=== PATIENT | female | born 1995 | race American Indian/Alaskan Native ===

== ENCOUNTER 2018-08-13 14:34 | Emergency (ER) | payer OTHER ==
[2018-08-13 15:24] VITALS: BP 118/67
--- NOTE | 2018-08-13 15:25 | Event Note ---
ED Screening Note Date of service: 08/13/18 Time: 15:20 ED Screening Note: 23 y/o female comes in for right 3rd digit pain and trauma. This happen a work last night now has swelling and pain. This initial assessment/diagnostic orders/clinical plan/treatment(s) is/are subject to change based on patients health status, clinical progression and re- assessment by fellow clinical providers in the ED. Further treatment and workup at subsequent clinical providers discretion. Patient/guardian urged not to elope from the ED as their condition may be serious if not clinically assessed and managed. Initial orders include:
--- NOTE | 2018-08-13 16:34 | XRay Report ---
PROCEDURE: RIGHT HAND, 2 VIEWS TECHNIQUE: RIGHT hand radiographs, AP and lateral views. CPT 78044-AV HISTORY: Trauma to the fourth digit. COMPARISONS: None . FINDINGS: Fracture (s) and/or Dislocation(s): There is an acute, oblique fracture through the tuft of the righ t fourth finger. . Alignment: Normal . Joint space(s): Normal . Soft tissues: There is soft tissue swelling of the left fourth finger . Bone mineralization: Normal . Foreign bodies: None . IMPRESSION: Acute right fourth finger tuft fracture . This document is electronically signed by Mable Ferguson., August 13 2018 04:31:42 PM ET
--- NOTE | 2018-08-13 16:35 | XRay Report ---
PROCEDURE: XR FINGER(S) 2+V RT TECHNIQUE: 3 views of the right fourth finger. HISTORY: trauma to right 4th digit COMPARISONS: None. FINDINGS: There is an acute, oblique fracture through the tuft of the right fourth finger. No dislocation. Normal mineralization. There is soft tissue swelling surrounding the right fourth finger. IMPRESSION: Acute right fourth finger tuft fracture. This document is electronically signed by Mable Ferguson., August 13 2018 04:33:41 PM ET
[2018-08-13] MEDS ORDERED: IBUPROFEN PO ONE (17:42)
--- NOTE | 2018-08-13 17:45 | Emergency Department Report ---
Upper Extremity - HPI Chief Complaint: Extremity Injury, Upper Stated Complaint: FINGER INJURY Time Seen by Provider: 08/13/18 15:20 Upper Extremity: Right Ring Finger Occurred When: Today Mechanism: Hit with Object Severity: moderate Symptoms: Yes Pain with Movement, Yes Limited Range of Movement, Yes Swelling, Yes Bruising/Ecchymosis, No Deformity, No Numbness, No Weakness, No Laceration or Abrasion Other History: grill fell on 4th fingertip ED Review of Systems ROS: Stated complaint: FINGER INJURY Other details as noted in HPI Comment: All other systems reviewed and negative ED Past Medical Hx - Past Medical History Previous Medical History?: No - Surgical History Past Surgical History?: No - Social History Smoking Status: Never Smoker Substance Use Type: Alcohol - Medications Home Medications: Home Medications Medication Instructions Recorded Confirmed Last Taken Type Ibuprofen [Motrin 600 MG tab] 600 mg PO Q6H #20 tablet 08/13/18 Unknown Rx Upper Extremity Exam - Exam General: Vital signs noted. No distress. Alert and acting appropriately. Wrist: Yes Normal ROM in Wrist, No Wrist Tenderness, No Wrist Deformity, No S nuffbox Tenderness, No Pain with Axial Thumb Compression Hand: Yes Digit Tenderness (4th R tip, bruising/swelling), No Hand Tenderness, No Hand Deformity, No Digit(s) Deformity, No Tendon Dysfunction CMS Exam: Yes Normal Distal Pulses, Yes Normal Capillary Refill, Yes Normal Distal Sensation, No Broken Skin ED Course Vital Signs 08/13/18 15:20 Temperature 97.9 F Pulse Rate 71 Respiratory 16 Rate Blood Pressure 118/67 O2 Sat by Pulse 98 Oximetry ED Medical Decision Making - Medical Decision Making tuft fx, splint placed given motrin, fu pcp - Differential Diagnosis fx, contusion Critical care attestation.: If time is entered above; I have spent that time in minutes in the direct care of this critically ill patient, excluding procedure time. ED Disposition Clinical Impression: Closed fracture of tuft of distal phalanx of finger Disposition: DC-01 TO HOME OR SELFCARE Is pt being admited?: No Condition: Good Instructions: Finger Fracture (ED) Prescriptions: Ibuprofen [Motrin 600 MG tab] 600 mg PO Q6H #20 tablet Referrals: IVY KEITH MD [Primary Care Provider] - 3-5 Days Time of Disposition: 17:45
== END 2018-08-13 18:11 | disposition home or self-care (01) ==
LOC: ED 14:34
DX: S62.634A Displaced fracture of distal phalanx of right ring finger, initial encounter for closed fracture (principal); Z79.1 Long term (current) use of non-steroidal anti-inflammatories (NSAID); Y29.XXXA Contact with blunt object, undetermined intent, initial encounter; Y93.89 Activity, other specified; Y92.89 Other specified places as the place of occurrence of the external cause; Y99.8 Other external cause status

== ENCOUNTER 2019-04-14 14:23 | Emergency (ER) | payer SELFPAY ==
[2019-04-14 14:31] VITALS: BP 100/66
--- NOTE | 2019-04-14 14:32 | Emergency Department Report ---
Chief Complaint: Medical Clearance Stated Complaint: CHECK UP - HPI History of Present Illness: 24 yo female presents with request for check up and test. MSE completed. Referred to outpatient physician. MSE screening note: Focused history and physical exam performed. Due to findings the following was ordered: ED Disposition for MSE Clinical Impression: Encounter for medical screening examination Disposition: MED SCREENING EXAM-LEFT Condition: Stable Referrals: BRYAN DE SANTIAGO MD [Staff Physician] - 3-5 Days [facility] [Outside] - 3-5 Days
== END 2019-04-14 15:13 | disposition left against medical advice (07) ==
LOC: ED 14:23
DX: Z32.00 Encounter for pregnancy test, result unknown (principal); Z53.21 Procedure and treatment not carried out due to patient leaving prior to being seen by health care provider
CPT/HCPCS: 99281